=== PATIENT | male | born 1945 | race Caucasian/White ===

== ENCOUNTER 2018-06-25 07:00 | Day surgery (SDC) | payer OTHER ==
[~2018-06-25] VITALS: Ht 167.6 cm; Wt 62.6 kg
[~2018-06-25 07:00] MED LIST: ALBUTEROL0.63 MG/3 IH; ATORVASTATIN CA10 MG PO; COZAAR50 MG PO; OMEPRAZOLE20 MG PO; SINGULAIR10 MG PO; SPIRIVA RESPIMAT4 G1 IH
[2018-06-26] MEDS ORDERED: AMOX1TAB5 PO (11:03)
== END 2018-06-26 08:00 | disposition home or self-care (01) ==
LOC: CIR.AMB 07:00 → O/R 07:30 → SURH 07:30 → EDSTATUS 11:00 → SURH 11:00 → O/R 14:20 → SURH 15:45 → CIR.AMB 06-26 08:00 → SURH 06-26 14:23
DX: C20 Malignant neoplasm of rectum (principal)

== ENCOUNTER 2018-07-04 16:14 | Inpatient (IN) | payer OTHER ==
[~2018-07-04] VITALS: Ht 167.6 cm; Wt 63.5 kg
[~2018-07-04 16:14] MED LIST changes: +AMOX1TAB5 PO
--- NOTE | 2018-07-04 16:21 | NUR ---
SE RECIBE PTE EN AMBULANCIA ALERTA Y ORIENTADO X3 TRASLADADODE WES [place],EL PTE REFIERE TENER SANGRADO RECTAL,FUE OPERADO POR EL DR.NICOLAS MOSER HACE 3 SEMANAS DE UN POLIPO,PTE TIENE JUDY DECLARACION JURADA QUE NO ACEPTA TRANSFUCION DE DOROTHY.
--- NOTE | 2018-07-04 17:38 | NUR ---
SE ORIENTA A PACIENTE SOBRE ORDENES MEDICAS. SE CANALIZA PACIENTE Y COLOCA IV FLUID ORDENADO. PACIENTE [facility]ZADO [facility]. SE BRINDAN CONTRASTES PARA ESTUDIO. PENDIENTE A RESULTADOS DE LABORATORIO Y CT SCAN PARA RE-EVALUACION MEDICA.
--- NOTE | 2018-07-04 19:23 | NUR ---
---ADMISION A SANTOS----- PACIENTE ALERTA Y ORIENTADO EN [facility] ESFERAS ES ADMITIDO PARA IR A SANTOS DE OPERACIONES. BUEN PATRON RESPIRATORIO. CANULA NASAL A 2LTS COLOCADA. PIEL TIBIA AL TACTO. CANALIZACION PATENTE, RONI DE EDEMA Y/O ENROJECIMIENTO RECIBIENDO 0.9%NSS @ 166 ML/HR. SE PROVEE VESTIMENTA PARA IR A SANTOS DE OPERACIONES.
[2018-07-06] MEDS ORDERED: CIPRO500 MG PO (10:07)
[2018-07-06] MEDS ORDERED: FLAGYL500MG PO (10:07)
[2018-07-06] MEDS ORDERED: INTEGRA F CAPS1 EACH PO (10:07)
[2018-07-06] MEDS ORDERED: INTESTINEX680 M1 PO (10:07)
== END 2018-07-06 18:11 | disposition home or self-care (01) | DRG 378 ==
LOC: ER 16:14 → SURH 18:53
PROVIDERS: ADMIT Surgery
PROC: 0DJD8ZZ Inspection of Lower Intestinal Tract, Via Natural or Artificial Opening Endoscopic (ICD-10-PCS; principal; 2018-07-04 19:00)
DX: K62.5 Hemorrhage of anus and rectum (principal); C20 Malignant neoplasm of rectum; I95.89 Other hypotension; D64.89 Other specified anemias; Z53.1 Procedure and treatment not carried out because of patient's decision for reasons of belief and group pressure

== ENCOUNTER 2018-09-03 05:40 | Day surgery (SDC) | payer OTHER ==
[~2018-09-03 05:40] MED LIST changes: +CIPRO500 MG PO; +DELTASONE20 MG; +FLAGYL500MG PO; +INTEGRA F CAPS1 EACH PO; +INTESTINEX680 M1 PO; +SYMBICORT 16010.2 GM; +ZITHROMAX500 MG; +[UNRECOGNIZED DRUG - OTHER] PO
[2018-09-03] MEDS ORDERED: PERCOCET 5-3251 EACH PO (08:21)
== END 2018-09-03 10:10 | disposition home or self-care (01) ==
LOC: CIR.AMB 05:40
DX: C20 Malignant neoplasm of rectum (principal)
CPT/HCPCS: 36561; C1751

== ENCOUNTER 2019-01-24 06:39 | Day surgery (SDC) | payer OTHER ==
[~2019-01-24 06:39] MED LIST changes: +PERCOCET 5-3251 EACH PO
== END 2019-01-24 12:55 | disposition home or self-care (01) ==
LOC: AMB-ENDOS 06:39
DX: K57.30 Diverticulosis of large intestine without perforation or abscess without bleeding (principal); Z85.048 Personal history of other malignant neoplasm of rectum, rectosigmoid junction, and anus